=== PATIENT | male | born 1950 | race Caucasian/White ===

== ENCOUNTER → 2016-12-09 | Outpatient (CLI) | payer OTHER ==
--- NOTE | 2016-12-09 09:08 | REP ---
Clinical: Shortness of breath . Comparison: 09/26/2012 . Technique: PA and lateral. Findings: The mediastinum and cardiac silhouette are normal. The lung cloud are clear and without acute consolidation, effusion, or pneumothorax. The skeletal structures are intact and normal. Impression: 1. No acute cardiopulmonary process. Signed by Cesar Dowd MD 12/09/2016 08:58 A
== END ==
LOC: M SMT 08:15
PROVIDERS: ATTEND Internal Medicine Cardiovascular Disease
DX: R06.02 Shortness of breath (principal)

== ENCOUNTER 2017-04-29 14:59 | Emergency (ER) | payer OTHER ==
[~2017-04-29] VITALS: Ht 167.6 cm; Wt 98.6 kg
[2017-04-29] MEDS ORDERED: ASPI81TA21 PO (15:11)
[2017-04-29] MEDS ORDERED: SPIR25TA2 (15:11)
[2017-04-29] MEDS ORDERED: CLOP75TA2 (15:11)
[2017-04-29] MEDS ORDERED: OMEP40CA2 (15:11)
[2017-04-29] MEDS ORDERED: MITI1CAP PO (15:11)
[2017-04-29] MEDS ORDERED: ATOR40TA75 (15:11)
[2017-04-29] MEDS ORDERED: CHLO125TA (15:11)
[2017-04-29] MEDS ORDERED: LISI-538 PO (15:11)
[2017-04-29] MEDS ORDERED: NS 1,000 ML IV ONE (15:30)
[2017-04-29] MEDS ORDERED: GASTROGRAFIN SOLUTION 30ML (Q9963) PO ONE ×2 (15:30→16:00)
[2017-04-29 15:55] LABS: BASO % 0.3 % (0.0-1.0); EOS % 0.4 % (0.0-3.0); IMMATURE GRANULOCYTE % 0.2 % (0-0); LYMPH # 2.1 10^3/uL (1.5-4.5); MEAN CORPUSCULAR HEMOGLOBIN 32.5 pg (27.0-33.0); MEAN CORPUSCULAR HGB CONC 34.7 g/dl (32.0-36.5); MEAN CORPUSCULAR VOLUME 93.5 fl (80.0-96.0); MONO # 0.6 10^3/uL (0.0-0.8); MONO % 6.2 % (0.0-5.0); NEUTROPHILS % 71.9 % (36.0-66.0); PLATELET COUNT, AUTOMATED 172 10^3/uL (150-450); RED CELL DISTRIBUTION WIDTH 13.2 % (11.5-14.5); WHITE BLOOD COUNT 9.8 10^3/uL (4.0-10.0)
[2017-04-29 16:08] LABS: ALBUMIN 4.1 GM/DL (3.2-5.2); ALBUMIN/GLOBULIN RATIO 1.24 (1.00-1.93); BILIRUBIN,DIRECT 0.3 MG/DL (0.0-0.2); CALCIUM LEVEL 9.3 MG/DL (8.8-10.2); CREATININE FOR GFR 1.54 MG/DL (0.70-1.30); GLOMERULAR FILTRATION RATE 48.7 (>49); POTASSIUM SERUM 4.2 MEQ/L (3.5-5.1); TOTAL PROTEIN 7.4 GM/DL (6.4-8.2)
--- NOTE | 2017-04-29 16:51 | REP ---
Clinical: Left-sided abdominal pain. Findings: Mild acute left-sided obstructive uropathy with perinephric and periureteral stranding, and hydroureteronephrosis secondary to a 2 mm calculus in the distal left ureter (image 136). Remainder of the urinary tract system is relatively normal by noncontrast evaluation. Liver, spleen, pancreas, gallbladder, and bilateral adrenal glands are normal. The enteric system is without obstruction or acute inflammatory process incidental note is made of 5 mm appendicolith without appendicitis. Pelvis demonstrates normal bladder prostate gland is enlarged and measures approximately 5.3 cm transverse diameter. No pelvic ascites no adenopathy. No free air. Infrarenal abdominal aortic aneurysm measures 4.4 cm diameter. Musculoskeletal structures demonstrate degenerative changes. Lung bases are clear. Impression: 1. Mild acute left-sided obstructive uropathy with 2 mm calculus in the distal left ureter. 2. Infrarenal abdominal aortic aneurysm measures 4.4 cm diameter and 5.5 cm craniocaudal length. Signed by Cesar Dowd MD 04/29/2017 04:43 P
[2017-04-29] MEDS ORDERED: FLOM5CAP PO (17:48)
[2017-04-29 17:56] VITALS: BP 147/87
== END 2017-04-29 18:04 | disposition home or self-care (01) ==
LOC: M ED 14:59
DX: N20.1 Calculus of ureter (principal)
CPT/HCPCS: 74176; 80048; 80076; 81001; 83690; 85025; 99284; Q9963

== ENCOUNTER → 2017-05-10 | Outpatient (REF) | payer OTHER ==
[~2017-05-10] MED LIST: ASPI81TA21 PO; ATOR40TA75; CHLO125TA; CLOP75TA2; FLOM5CAP PO; LISI-538 PO; MITI1CAP PO; OMEP40CA2; SPIR25TA2
== END ==
LOC: M SMT 16:57
PROVIDERS: ATTEND Nurse Practitioner Women's Health
DX: N20.1 Calculus of ureter (principal)

== ENCOUNTER → 2017-11-30 | Outpatient (CLI) | payer MEDICARE | LOC: M RAD 07:56 | DX: I71.4 Abdominal aortic aneurysm, without rupture (principal) | CPT/HCPCS: 76775 ==

== ENCOUNTER → 2018-07-12 | Outpatient (CLI) | payer MEDICARE ==
[~2018-07-12] MED LIST changes: +FLOM0.4C39 PO; -FLOM5CAP PO; +SPIR-10; -SPIR25TA2
--- NOTE | 2018-07-12 09:57 | REP ---
Abdominal aortic sonography: History: Abdominal aortic aneurysm without rupture. Comparison sonography November 30, 2017. Comparison is also made with CT study from April 29, 2017. Findings: The proximal aorta and the aorta at the level of the main renal arteries could not be seen due to bowel gas. At mid aortic level, the abdominal aorta measures 2.5 x 2.5 cm in AP by transverse dimension. There is a infrarenal abdominal aortic aneurysm measuring 4.4 cm AP by 5.1 cm transverse by 11.5 cm in length. The right and left common iliac arteries are not aneurysmal measuring 1.4 and 1.3 cm respectively in AP dimension. Impression: Somewhat limited study. 4.4 cm infrarenal abdominal aortic aneurysm seen. No change from comparison studies. Electronically Signed by Forest English MD 07/12/2018 10:05 A
== END ==
LOC: M RAD 07:22
PROVIDERS: ATTEND Surgery Vascular Surgery
DX: I71.4 Abdominal aortic aneurysm, without rupture (principal)

== ENCOUNTER → 2019-03-24 | Outpatient (CLI) | payer MEDICARE ==
[~2019-03-24] MED LIST changes: -OMEP40CA2; +OMEP40CA97
--- NOTE | 2019-03-24 09:38 | REP ---
ABDOMINAL AORTIC SONOGRAPHY: HISTORY: Abdominal aortic aneurysm without rupture. Comparison sonography July 12, 2018. FINDINGS: Exam quality is substantially inhibited by bowel gas in the upper abdomen and patient body habitus. The aorta could not be seen at the level of the diaphragmatic hiatus or at the level of the renal artery origins. The previously noted aneurysm dimensions today are 5.1 x 5.3 cm, anterior to posterior by right to left respectively. The distal aorta measures 3.5 x 3.1 cm. The common iliac artery dimensions are 1.4 cm in AP dimension bilaterally. Previous AP dimension of the infrarenal abdominal aortic aneurysm was 4.4 cm. IMPRESSION: Poor image quality study today. 5.1 cm infrarenal abdominal aortic aneurysm. This is larger than previous measured dimension. Electronically Signed by Forest English MD 03/24/2019 07:33 P
== END ==
LOC: M RAD 06:41
PROVIDERS: ATTEND Physician Assistant
DX: I71.4 Abdominal aortic aneurysm, without rupture (principal)

== ENCOUNTER → 2019-04-20 | Outpatient (CLI) | payer MEDICARE ==
[2019-04-20 16:09] LABS: BLOOD UREA NITROGEN 15 MG/DL (7-18); CALCIUM LEVEL 9.4 MG/DL (8.8-10.2); CARBON DIOXIDE LEVEL 30 MEQ/L (21-32); CHLORIDE LEVEL 99 MEQ/L (98-107); CREATININE FOR GFR 1.06 MG/DL (0.70-1.30); GLOMERULAR FILTRATION RATE > 60.0 (>49); GLUCOSE, FASTING 92 MG/DL (70-100); POTASSIUM SERUM 4.5 MEQ/L (3.5-5.1); SODIUM LEVEL 136 MEQ/L (136-145)
== END ==
LOC: M LAB 14:12
PROVIDERS: ATTEND Physician Assistant
DX: I71.4 Abdominal aortic aneurysm, without rupture (principal)

== ENCOUNTER → 2019-05-02 | Outpatient (CLI) | payer MEDICARE ==
[~2019-05-02] MED LIST changes: +ISOVUE-370 76% 100ML VIAL (Q9967) As Ordered ONE
--- NOTE | 2019-05-02 09:20 | REP ---
Clinical: History of abdominal aortic aneurysm. Technique: Axial contrast enhanced images from the lung bases to the pubic symphysis using angiographic technique including coronal and sagittal MIP re-formations and volume rendered aortic angiogram. Comparison: 04/29/2017. Findings: There is a partially thrombosed infrarenal abdominal aortic aneurysm which measures 4.5 x 4.2 cm diameter and approximately 8.6 cm in craniocaudal length originating 3 cm below the renal arteries and extending to the level of the aortic bifurcation. Patent lumen through the aneurysm measures 3.6 x 2.9 cm maximal diameter. No evidence for rupture or periaortic inflammatory change / fluid. Moderate diffuse atherosclerotic changes are appreciated throughout the arterial vascular structures. Celiac axis, superior mesenteric artery, bilateral renal arteries and iliac arteries demonstrate normal intraluminal enhancement without obvious focal stenosis or occlusion. Liver, spleen, pancreas, gallbladder, bilateral adrenal glands and kidneys are relatively normal. The enteric system is without obstruction or acute inflammatory process. Pelvis demonstrates normal bladder with mildly enlarged prostate gland measuring 5.1 cm maximal transverse diameter. No ascites. No free air. No adenopathy. Musculoskeletal structures demonstrate age-related changes without focal abnormality. Lung bases are clear. Impression: 1. Infrarenal abdominal aortic aneurysm as detailed above. 2. Moderate generalized atherosclerotic disease. 3. Prostatomegaly. Electronically Signed by Cesar Dowd MD 05/02/2019 09:12 A
== END ==
LOC: M RAD 07:32
PROVIDERS: ATTEND Physician Assistant
DX: N40.0 Benign prostatic hyperplasia without lower urinary tract symptoms (principal); I25.10 Atherosclerotic heart disease of native coronary artery without angina pectoris; I71.4 Abdominal aortic aneurysm, without rupture
CPT/HCPCS: 74174; Q9967

== ENCOUNTER → 2019-11-27 | Outpatient (CLI) | payer MEDICARE ==
[~2019-11-27] MED LIST changes: -ISOVUE-370 76% 100ML VIAL (Q9967) As Ordered ONE
[2019-11-27 11:06] LABS: BLOOD UREA NITROGEN 19 MG/DL (7-18); CALCIUM LEVEL 8.7 MG/DL (8.8-10.2); CARBON DIOXIDE LEVEL 31 MEQ/L (21-32); CHLORIDE LEVEL 100 MEQ/L (98-107); CREATININE FOR GFR 0.99 MG/DL (0.70-1.30); GLOMERULAR FILTRATION RATE > 60.0 (>49); GLUCOSE, FASTING 96 MG/DL (70-100); SODIUM LEVEL 136 MEQ/L (136-145)
== END ==
LOC: M LAB 09:28
PROVIDERS: ATTEND Surgery Vascular Surgery
DX: Z01.818 Encounter for other preprocedural examination (principal); I71.4 Abdominal aortic aneurysm, without rupture

== ENCOUNTER → 2019-11-30 | Outpatient (CLI) | payer MEDICARE ==
[~2019-11-30] MED LIST changes: +ISOVUE-370 76% 100ML VIAL As Ordered ONE
--- NOTE | 2019-11-30 10:06 | REP ---
CT CHEST WITH IV CONTRAST: HISTORY: Abdominal aortic aneurysm. No comparison chest CT study. CT CONTRAST DOSE: 100 mL of intravenous Isovue [address] FINDINGS: There is good opacification of the thoracic aorta and the pulmonary arterial tree. There is no evidence of thoracic aortic aneurysm or dissection. Mild vascular calcification is seen. Great vessel origins are unremarkable. There is no evidence of pulmonary embolus. There is left coronary artery vascular calcification. No mediastinal mass or adenopathy is observed. No pleural or pericardial effusion is seen. The lung cloud are clear. No pulmonary mass or significant pulmonary nodule is seen. No infiltrate is noted. No bony destructive lesion is seen. There are degenerative disc changes in the thoracic spine. Thyroid lobes are normal and symmetric. No supraclavicular or axillary mass or adenopathy is seen. IMPRESSION: Vascular calcification including left coronary artery vascular calcification. Otherwise no active disease. No thoracic aortic aneurysm or dissection. Electronically Signed by Forest English MD 11/30/2019 10:35 A
--- NOTE | 2019-11-30 10:08 | REP ---
CT SCAN OF THE ABDOMEN PELVIS WITH IV BUT WITHOUT ORAL CONTRAST: HISTORY: Abdominal aortic aneurysm without rupture. CT CONTRAST DOSE: 100 mL of intravenous Isovue 370 is administered. COMPARISON STUDY: May 02, 2019 and April 29, 2017. The most recent abdominal CT study describes an infrarenal abdominal aortic aneurysm measuring 4.5 x 4.2 cm in diameter and 8.6 cm in craniocaudal span. CT FINDINGS: Digital preliminary photoengraver apprentice radiograph shows an unremarkable bowel gas pattern. There is moderate diffuse fatty infiltration of the liver. No abnormalities noted in the pancreas and gallbladder. No focal hepatic or splenic lesion is seen. The adrenals are normal bilaterally. The kidneys enhance symmetrically and are morphologically intact. There is mild vascular calcification at the renal artery origins as before. The distal thoracic and proximal abdominal aortic dimension is normal. At the diaphragmatic hiatus the AP dimension of the aorta is 2.3 cm. An infrarenal abdominal aortic aneurysm is again noted. Its current dimensions are 4.9 cm anteroposterior x 4.5 cm right to left, on previous scan by my dimensions, the aneurysm would measured 4.8 x 4.4 cm. It is felt to be essentially unchanged. On the 2017 scan AP dimension is 4.7 cm. There is an intramural thrombus. The aneurysm has good aortic bifurcation. There is vascular calcification in the common iliac arteries but these are not dilated. No aneurysm is seen in the external or internal iliacs or in the visceral arteries. Normal appendix is seen. Small and large intestinal bowel loops are unremarkable. Seminal vesicles, prostate and urinary bladder are unremarkable. IMPRESSION: Infrarenal abdominal aortic aneurysm measuring 4.9 x 4.5 cm essentially unchanged. Electronically Signed by Forest English MD 11/30/2019 10:35 A
== END ==
LOC: M RAD 08:14
PROVIDERS: ATTEND Physician Assistant
DX: I71.4 Abdominal aortic aneurysm, without rupture (principal)
CPT/HCPCS: 71260; 74177; Q9967

== ENCOUNTER → 2020-10-14 | Outpatient (CLI) | payer MEDICARE ==
[~2020-10-14] MED LIST changes: -ISOVUE-370 76% 100ML VIAL As Ordered ONE; -LISI-538 PO; +LISI20TA33 PO
--- NOTE | 2020-10-14 09:38 | REP ---
INDICATION: AAA. COMPARISON: 03/24/2019. TECHNIQUE: Real-time sonographic evaluation of the abdominal aorta performed. FINDINGS: There is no significant change when compared to the prior study. Overlying bowel gas obscures the proximal abdominal aorta. Maximum AP diameter of abdominal aorta: Proximal (at diaphragm): Obscured by bowel gas. At renal artery level: Obscured by bowel gas. Mid abdominal aorta: 2.9 cm. Distal abdominal aorta (prebifurcation): 4.8 cm. Maximum AP diameter common iliac arteries: Right: 14 mm. Left: 14mm. The distal abdominal aortic aneurysm extends for a length of approximately 6-7 cm. Current measurements 4.8 x 5.8 cm, previously measured 5.1 x 5.3 cm. IMPRESSION: Stable aneurysm distal abdominal aorta. <Electronically signed by Pb Malone > 10/14/20 [id number]
== END ==
LOC: M RAD 06:43
PROVIDERS: ATTEND Physician Assistant
DX: I71.4 Abdominal aortic aneurysm, without rupture (principal)

== ENCOUNTER → 2020-11-11 | Outpatient (REF) | payer MEDICARE ==
[2020-11-11 10:11] LABS: HEMATOCRIT 45.3 % (42.0-52.0); HEMOGLOBIN 15.1 g/dl (13.5-17.5); MEAN CORPUSCULAR HEMOGLOBIN 31.1 pg (27.0-33.0); MEAN CORPUSCULAR HGB CONC 33.3 g/dl (32.0-36.5); MEAN CORPUSCULAR VOLUME 93.4 fl (80.0-96.0); PLATELET COUNT, AUTOMATED 150 10^3/uL (150-450); RED BLOOD COUNT 4.85 10^6/uL (4.30-6.10); WHITE BLOOD COUNT 5.3 10^3/uL (4.0-10.0)
[2020-11-11 10:43] LABS: ALBUMIN 3.9 GM/DL (3.2-5.2); ALT/SGPT 40 U/L (12-78); BILIRUBIN,TOTAL 0.6 MG/DL (0.2-1.0); BLOOD UREA NITROGEN 17 MG/DL (7-18); CALCIUM LEVEL 8.8 MG/DL (8.8-10.2); CARBON DIOXIDE LEVEL 25 MEQ/L (21-32); CHLORIDE LEVEL 101 MEQ/L (98-107); CHOLESTEROL LEVEL 144 MG/DL (<200); CHOLESTEROL RISK RATIO 3.348 (<5); CREATININE FOR GFR 0.82 MG/DL (0.70-1.30); GLOMERULAR FILTRATION RATE > 60.0 (>49); GLUCOSE, FASTING 114 MG/DL (70-100); HDL CHOLESTEROL 43 MG/DL (>40); LDL CHOLESTEROL 68 MG/DL (<100); NON-HDL-C 101 MG/DL; POTASSIUM SERUM 4.7 MEQ/L (3.5-5.1); SODIUM LEVEL 133 MEQ/L (136-145); TOTAL PROTEIN 7.5 GM/DL (6.4-8.2); TRIGLYCERIDES LEVEL 166 MG/DL (<150)
[2020-11-11 11:37] LABS: HEMOGLOBIN A1c 6.2 %
== END ==
LOC: M PLALAB 07:51
PROVIDERS: ATTEND Family Medicine
DX: I71.4 Abdominal aortic aneurysm, without rupture (principal); E78.2 Mixed hyperlipidemia; R73.03 Prediabetes; Z12.5 Encounter for screening for malignant neoplasm of prostate
CPT/HCPCS: 36415; 80053; 80061; 83036; 85027; G0103

== ENCOUNTER → 2020-11-11 | Outpatient (CLI) | payer MEDICARE ==
[2020-11-11 10:18] LABS: BLOOD UREA NITROGEN 17 MG/DL (7-18); CALCIUM LEVEL 8.8 MG/DL (8.8-10.2); CARBON DIOXIDE LEVEL 26 MEQ/L (21-32); CHLORIDE LEVEL 101 MEQ/L (98-107); CHOLESTEROL LEVEL 150 MG/DL (<200); CHOLESTEROL RISK RATIO 3.409 (<5); CREATININE FOR GFR 0.87 MG/DL (0.70-1.30); GLOMERULAR FILTRATION RATE > 60.0 (>49); GLUCOSE, FASTING 113 MG/DL (70-100); HDL CHOLESTEROL 44 MG/DL (>40); LDL CHOLESTEROL 73 MG/DL (<100); NON-HDL-C 106 MG/DL; POTASSIUM SERUM 4.3 MEQ/L (3.5-5.1); SODIUM LEVEL 134 MEQ/L (136-145); TRIGLYCERIDES LEVEL 165 MG/DL (<150)
== END ==
LOC: M PLALAB 07:51
PROVIDERS: ATTEND Physician Assistant
DX: I25.10 Atherosclerotic heart disease of native coronary artery without angina pectoris (principal); I11.9 Hypertensive heart disease without heart failure

== ENCOUNTER → 2020-12-04 | Outpatient (CLI) | payer MEDICARE ==
[~2020-12-04] MED LIST changes: +OMEP40CA4; -OMEP40CA97
--- NOTE | 2020-12-04 13:27 | REP ---
INDICATION: PAIN IN RIGHT HIP COMPARISON: None. TECHNIQUE: AP and frog-lateral views of the right hip FINDINGS: Moderate osteoarthritic degenerative changes are appreciated including subchondral sclerosis and very subtle cystic changes to the acetabulum with near complete joint space obliteration. No acute or healed fracture or dislocation. Surrounding soft tissues are unremarkable. IMPRESSION: Moderate osteoarthritic degenerative changes. <Electronically signed by Cesar Dowd > 12/04/20 [id number]
== END ==
LOC: M ADAMS 12:46
PROVIDERS: ATTEND Family Medicine
DX: M16.11 Unilateral primary osteoarthritis, right hip (principal)

== ENCOUNTER → 2020-12-11 | Outpatient (CLI) | payer MEDICARE ==
--- NOTE | 2020-12-11 15:34 | REP ---
INDICATION: PAIN IN RIGHT HIP. COMPARISON: None. TECHNIQUE: Single weightbearing AP view of the pelvis FINDINGS: Visualized portions of the iliac bones appear relatively normal and without fracture or dislocation. Moderate degenerative changes to the bilateral hips includes periarticular sclerosis and marginal spurring along the acetabular roofs with associated moderate joint space narrowing (right greater than left). No acute fracture or dislocation. IMPRESSION: Moderate degenerative changes to the bilateral hips (right greater than left). <Electronically signed by Cesar Dowd > 12/11/20 [id number]
== END ==
LOC: M SOG 15:09
PROVIDERS: ATTEND Orthopaedic Surgery Adult Reconstructive Orthopaedic Surgery
DX: M25.551 Pain in right hip (principal); M16.0 Bilateral primary osteoarthritis of hip

== ENCOUNTER → 2020-12-31 | Outpatient (CLI) | payer MEDICARE ==
[~2020-12-31] MED LIST changes: +ISOVUE-370 76% 100ML VIAL As Ordered ONE
--- NOTE | 2020-12-31 10:27 | REP ---
INDICATION: ABDOMINAL AORTIC ANEURYSM, WITHOUT RUPTURE COMPARISON: Aortic ultrasound 10/14/2020, CT abdomen pelvis 11/30/2019, CT angio 05/02/2019. TECHNIQUE: CT angiogram of the abdomen and pelvis was performed with intravenous administration of 100 cc of Isovue 370, without oral contrast. 3D MIP reconstruction images performed. FINDINGS: Abdominal aorta: There is infrarenal abdominal aortic aneurysm beginning well below takeoff the renal arteries. As a length of 8.7 mm. Peripheral atherosclerotic plaque evident within. The maximum measurement AP 4.6 cm x 4.5 cm transverse. There is no dissection. No evidence of a leak paraspinal region. No aortic dissection. There is atheromatous calcification evident along the aorta, origins of the renal arteries, SMA and celiac axis. No extension into the bifurcation or iliac arteries. Scattered atherosclerotic calcifications there. Lung bases: Unremarkable. Liver: Is without the enlargement, focal hepatic mass or biliary dilatation. Gallbladder: Unremarkable. Spleen: Normal. Adrenals: Normal. Pancreas: Normal. Kidneys: There is a zone of the poor enhancement in the lower pole on the right. There is no mass or enlargement. This could be focal ischemia or infection. No Cynthia nephric fluid or edema. There is an accessory renal artery to the lower pole arising from the aorta well below the main renal artery. This is opacified. Small and large bowel: Unremarkable. Free fluid: None. Adenopathy: None. Appendix: Not inflamed. Pelvis: No mass. No ascites or adenopathy. Osseous structures: Bilateral L5 spondylolysis with grade 1/2 spondylolisthesis of L5 on S1. Disc space is narrowed the other disc space heights and all vertebral body heights intact. Sacrum, SI joints, pelvis and hips with some degenerative changes but no acute finding.. IMPRESSION: 1. Infrarenal abdominal aortic aneurysm length of 8.7 cm by my measurement today and AP 4.6 cm x 4.5 cm transverse at maximum diameters. No evidence of dissection. There is no paraspinal leak. Atheromatous change and calcifications noted. Findings appear stable. No dissection 2. Lower pole right kidney with the zone of poor opacification as a change from previous study this may reflect the focal area of infection versus some ischemia. However the accessory renal artery arising from the aorta inferior to the main renal artery shows contrast to the renal hilus. Left kidney unremarkable. No other significant intra-abdominal or pelvic organ finding. 3. Bilateral L5 spondylolysis with grade 1/2 spondylolisthesis of L5 on S1 and some degenerative disc and facet arthritis lumbar spine. This is stable. <Electronically signed by Arun Atwood > 12/31/20 [id number]
== END ==
LOC: M RAD 09:18
PROVIDERS: ATTEND Physician Assistant
DX: I71.4 Abdominal aortic aneurysm, without rupture (principal); M43.16 Spondylolisthesis, lumbar region; M51.36 Other intervertebral disc degeneration, lumbar region
CPT/HCPCS: 74174; Q9967

== ENCOUNTER → 2021-05-07 | Outpatient (CLI) | payer MEDICARE ==
[~2021-05-07] MED LIST changes: -ISOVUE-370 76% 100ML VIAL As Ordered ONE
== END ==
LOC: M LABSMTC 11:03
PROVIDERS: ATTEND Surgery Vascular Surgery
DX: Z01.812 Encounter for preprocedural laboratory examination (principal); Z20.822 Contact with and (suspected) exposure to COVID-19

== ENCOUNTER → 2021-10-17 | Outpatient (CLI) | payer MEDICARE | LOC: M SOG 07:58 | PROVIDERS: ATTEND Orthopaedic Surgery Adult Reconstructive Orthopaedic Surgery | DX: M16.11 Unilateral primary osteoarthritis, right hip (principal); M25.551 Pain in right hip ==

== ENCOUNTER → 2021-11-06 | Outpatient (CLI) | payer MEDICARE ==
[~2021-11-06] MED LIST changes: +BUPIVACAINE HCL 0.5% 30ML VIAL As Ordered ONE; +ISOVUE-300 61% 50ML VIAL As Ordered ONE; +LIDOCAINE 1% MDV 20ML VIAL As Ordered ONE; +methylPREDNISolone 80MG/ML SUSP 1ML VIAL (J1040) As Ordered ONE
== END ==
LOC: M RADPRO 13:04
PROVIDERS: ATTEND Orthopaedic Surgery Adult Reconstructive Orthopaedic Surgery
DX: M16.0 Bilateral primary osteoarthritis of hip (principal)
CPT/HCPCS: 20610; 77002; J1040; Q9967

== ENCOUNTER → 2021-11-24 | Outpatient (CLI) | payer MEDICARE ==
[~2021-11-24] MED LIST changes: -BUPIVACAINE HCL 0.5% 30ML VIAL As Ordered ONE; -ISOVUE-300 61% 50ML VIAL As Ordered ONE; -LIDOCAINE 1% MDV 20ML VIAL As Ordered ONE; -methylPREDNISolone 80MG/ML SUSP 1ML VIAL (J1040) As Ordered ONE
[2021-11-24 10:37] LABS: HEMATOCRIT 45.8 % (42.0-52.0); HEMOGLOBIN 15.2 g/dl (13.5-17.5); MEAN CORPUSCULAR HEMOGLOBIN 31.4 pg (27.0-33.0); MEAN CORPUSCULAR HGB CONC 33.2 g/dl (32.0-36.5); MEAN CORPUSCULAR VOLUME 94.6 fl (80.0-96.0); PLATELET COUNT, AUTOMATED 144 10^3/uL (150-450); RED BLOOD COUNT 4.84 10^6/uL (4.30-6.10); WHITE BLOOD COUNT 6.1 10^3/uL (4.0-10.0)
[2021-11-24 11:16] LABS: HEMOGLOBIN A1c 6.4 %
[2021-11-24 11:20] LABS: ALBUMIN 3.8 GM/DL (3.2-5.2); ALT/SGPT 34 U/L (12-78); BILIRUBIN,TOTAL 0.7 MG/DL (0.2-1.0); BLOOD UREA NITROGEN 19 MG/DL (7-18); CALCIUM LEVEL 8.9 MG/DL (8.8-10.2); CARBON DIOXIDE LEVEL 30 MEQ/L (21-32); CHLORIDE LEVEL 99 MEQ/L (98-107); CHOLESTEROL LEVEL 145 MG/DL (<200); CHOLESTEROL RISK RATIO 3.372 (<5); CREATININE FOR GFR 1.04 MG/DL (0.70-1.30); GLOMERULAR FILTRATION RATE > 60.0 (>49); GLUCOSE, FASTING 122 MG/DL (70-100); HDL CHOLESTEROL 43 MG/DL (>40); LDL CHOLESTEROL 59 MG/DL (<100); NON-HDL-C 102 MG/DL; POTASSIUM SERUM 4.8 MEQ/L (3.5-5.1); SODIUM LEVEL 136 MEQ/L (136-145); TOTAL PROTEIN 7.4 GM/DL (6.4-8.2); TRIGLYCERIDES LEVEL 217 MG/DL (<150)
== END ==
LOC: M PLALAB 08:21
PROVIDERS: ATTEND Family Medicine
DX: I11.9 Hypertensive heart disease without heart failure (principal); I25.10 Atherosclerotic heart disease of native coronary artery without angina pectoris; E78.2 Mixed hyperlipidemia; R73.03 Prediabetes; Z12.5 Encounter for screening for malignant neoplasm of prostate
CPT/HCPCS: 36415; 80053; 80061; 83036; 85027; G0103

== ENCOUNTER → 2022-02-05 | Outpatient (CLI) | payer MEDICARE, OTHER ==
[~2022-02-05] MED LIST changes: +BUPIVACAINE HCL 0.5% 30ML VIAL As Ordered ONE; +ISOVUE-300 61% 50ML VIAL As Ordered ONE; +LIDOCAINE 1% MDV 20ML VIAL As Ordered ONE; +methylPREDNISolone 80MG/ML SUSP 1ML VIAL (J1040) As Ordered ONE
== END ==
LOC: M RAD 12:51
PROVIDERS: ATTEND Orthopaedic Surgery Adult Reconstructive Orthopaedic Surgery
DX: M16.0 Bilateral primary osteoarthritis of hip (principal)
CPT/HCPCS: 76000; J1040; Q9967

== ENCOUNTER → 2022-04-06 | Outpatient (RCR) | payer MEDICARE, OTHER ==
[~2022-04-06] MED LIST changes: -BUPIVACAINE HCL 0.5% 30ML VIAL As Ordered ONE; -ISOVUE-300 61% 50ML VIAL As Ordered ONE; -LIDOCAINE 1% MDV 20ML VIAL As Ordered ONE; -methylPREDNISolone 80MG/ML SUSP 1ML VIAL (J1040) As Ordered ONE
== END ==
LOC: M PT 10:39
PROVIDERS: ATTEND Orthopaedic Surgery Adult Reconstructive Orthopaedic Surgery
DX: M25.851 Other specified joint disorders, right hip (principal)

== ENCOUNTER → 2022-04-28 | Outpatient (REF) | payer MEDICARE ==
[~2022-04-28] MED LIST changes: +ASPI81TA26 PO; +ATOR1TAB21 PO; +CHLO125TA PO; +CLOP75TA2 PO; +COLC0.6T47 PO; +COQ-100C5 PO; +IBUP200C27 PO; +IBUP200C28 PO; +LISI10TA22 PO; +NITR4TASL SL; +OMEG10002 PO; +OMEP40CA4 PO; +SPIR-10 PO
[2022-04-28 13:35] LABS: BASO % 0.6 % (0.0-1.0); EOS # 0.2 10^3/uL (0.0-0.5); EOS % 2.5 % (0.0-3.0); HEMATOCRIT 46.9 % (42.0-52.0); HEMOGLOBIN 15.4 g/dl (13.5-17.5); LYMPH # 1.9 10^3/uL (1.5-5.0); LYMPH % 28.7 % (24.0-44.0); MEAN CORPUSCULAR HEMOGLOBIN 31.2 pg (27.0-33.0); MEAN CORPUSCULAR HGB CONC 32.8 g/dl (32.0-36.5); MEAN CORPUSCULAR VOLUME 95.1 fl (80.0-96.0); MONO # 0.8 10^3/uL (0.0-0.8); MONO % 12.6 % (2.0-8.0); NEUTROPHILS # 3.6 10^3/uL (1.5-8.5); NEUTROPHILS % 55.1 % (36.0-66.0); PLATELET COUNT, AUTOMATED 168 10^3/uL (150-450); RED BLOOD COUNT 4.93 10^6/uL (4.30-6.10); WHITE BLOOD COUNT 6.4 10^3/uL (4.0-10.0)
[2022-04-28 14:27] LABS: ALT/SGPT 31 U/L (7.0-40); BILIRUBIN,TOTAL 0.5 MG/DL (0.3-1.2); BLOOD UREA NITROGEN 17 MG/DL (9-23); CALCIUM LEVEL 9.2 MG/DL (8.3-10.6); CARBON DIOXIDE LEVEL 29 MMOL/L (20-31); CHLORIDE LEVEL 98 MMOL/L (98-107); CREATININE FOR GFR 0.87 MG/DL (0.70-1.30); GLOMERULAR FILTRATION RATE > 60.0 (>49); GLUCOSE, FASTING 110 MG/DL (74-106); POTASSIUM SERUM 4.6 MMOL/L (3.5-5.1); SODIUM LEVEL 136 MMOL/L (136-145); TOTAL PROTEIN 7.4 G/DL (5.7-8.2)
== END ==
LOC: M SFHCADAM 10:56
PROVIDERS: ATTEND Family Medicine
DX: Z01.818 Encounter for other preprocedural examination (principal)

== ENCOUNTER → 2022-04-29 | Outpatient (CLI) | payer MEDICARE, OTHER | LOC: M RAD 08:40 | PROVIDERS: ATTEND Orthopaedic Surgery Adult Reconstructive Orthopaedic Surgery | DX: M16.0 Bilateral primary osteoarthritis of hip (principal) ==

== ENCOUNTER → 2022-05-07 | Outpatient (CLI) | payer MEDICARE, OTHER | LOC: M LABSMTC 09:08 | PROVIDERS: ATTEND Anesthesiology | DX: Z01.812 Encounter for preprocedural laboratory examination (principal); Z11.52 Encounter for screening for COVID-19 ==

== ENCOUNTER 2022-05-12 08:57 | Inpatient (IN) | payer OTHER ==
[~2022-05-12] VITALS: Ht 167.6 cm; Wt 95.3 kg
[~2022-05-12 08:57] MED LIST changes: +ACETAMINOPHEN 500 MG TAB PO ONE; +LIDOCAINE 2% 100MG/5ML SDV (FOR ANES.) As Ordered ONE; +MIDAZOLAM INJ 2MG/2ML VIAL (J2250 PER 1MG) As Ordered ONE; +NAPROXEN 250 MG TAB PO ONE; +NS 1,000 ML IV ONE; +PREGABALIN 25 MG CAP (LYRICA) PO ONE; +ROCURONIUM BROMIDE 50 MG/5 ML VIAL As Ordered ONE; +ROPIVA 125MG/EPINEPH 0.25MG/CLONID 40MCG/KETOR 15MG IN NS 50ML SYRINGE PA ONE; +ceFAZolin SOD 2 GM in IV 1 EA IV ONE; +fentaNYL 250 MCG/5 ML INJECTION As Ordered ONE; +propofoL 200 MG/20 ML VIAL As Ordered ONE
[2022-05-12] MEDS ORDERED: TRANEXAMIC ACID 100 MG/ML 10ML VIAL As Ordered ONE ×2 (10:31→11:51)
[2022-05-12] MEDS ORDERED: VANCOMYCIN 1000MG/20ML VIAL As Ordered ONE (10:31)
[2022-05-12] MEDS ORDERED: METOCLOPRAMIDE INJ 10MG/2ML VIAL As Ordered ONE (12:22)
[2022-05-12] MEDS ORDERED: SUGAMMADEX SODIUM 500 MG/5 ML VIAL (BRIDION) As Ordered ONE (12:22)
[2022-05-12] MEDS ORDERED: ONDANSETRON 4MG 2ML VIAL As Ordered ONE (12:22)
[2022-05-12] MEDS ORDERED: MORPHINE 2 MG/ML 1ML VIAL IV PRN (13:40)
[2022-05-12] MEDS ORDERED: fentaNYL 100 MCG/2 ML INJECTION IV PRN (13:40)
[2022-05-12] MEDS ORDERED: LR 1,000 ML IV SCH ×2 (13:40→14:25)
[2022-05-12] MEDS ORDERED: METOCLOPRAMIDE INJ 10MG/2ML VIAL IV PRN (13:40)
[2022-05-12] MEDS ORDERED: ONDANSETRON 4MG 2ML VIAL IV PRN ×2 (13:40→14:25)
[2022-05-12] MEDS ORDERED: oxyCODONE 5MG TAB PO PRN (13:40)
[2022-05-12] MEDS ORDERED: SENNA 8.6 MG TAB (SENOKOT) PO PRN (14:25)
[2022-05-12] MEDS ORDERED: traMADol 50 MG TAB PO PRN (14:25)
[2022-05-12 17:30] VITALS: BP 171/92
[2022-05-12] MEDS ORDERED: HOME MED LIST COMPLETE! XX SCH (18:10)
[2022-05-12] MEDS: ACETAMINOPHEN TAB 650MG DOSE (2X325MG) PO SCH (18:35)
[2022-05-12 19:55] VITALS: BP 138/73
[2022-05-12] MEDS: ceFAZolin SOD 2 GM in IV 1 EA IV SCH (20:02)
[2022-05-12] MEDS ORDERED: NAPROXEN 250 MG TAB PO SCH (21:00)
[2022-05-12] MEDS ORDERED: DOCUSATE SODIUM 100MG CAPSULE PO SCH (21:00)
[2022-05-13] MEDS: ACETAMINOPHEN TAB 650MG DOSE (2X325MG) PO SCH ×2 (01:12→05:10)
[2022-05-13 01:53] VITALS: BP 147/81
[2022-05-13] MEDS: ceFAZolin SOD 2 GM in IV 1 EA IV SCH (05:02)
[2022-05-13 05:04] VITALS: BP 147/83
[2022-05-13 08:23] LABS: HEMATOCRIT 35.7 % (42.0-52.0); HEMOGLOBIN 12.2 g/dl (13.5-17.5); MEAN CORPUSCULAR HEMOGLOBIN 31.6 pg (27.0-33.0); MEAN CORPUSCULAR HGB CONC 34.2 g/dl (32.0-36.5); MEAN CORPUSCULAR VOLUME 92.5 fl (80.0-96.0); PLATELET COUNT, AUTOMATED 157 10^3/uL (150-450); RED BLOOD COUNT 3.86 10^6/uL (4.30-6.10); WHITE BLOOD COUNT 12.8 10^3/uL (4.0-10.0)
[2022-05-13] MEDS ORDERED: ASPIRIN 81MG ENTERIC TABLET PO SCH (09:00)
[2022-05-13] MEDS ORDERED: FERROUS SULFATE 325MG TAB PO SCH (09:00)
[2022-05-13] MEDS ORDERED: ASCORBIC ACID 500 MG TAB PO SCH (09:00)
[2022-05-13] MEDS ORDERED: ASCORBIC ACID 500 MG TAB ONE (09:28)
[2022-05-13] MEDS ORDERED: ACETAMINOPHEN TAB 650MG DOSE (2X325MG) ONE ×3 (09:28→17:30)
[2022-05-13] MEDS ORDERED: OMEPRAZOLE 20MG CAP ONE (09:29)
[2022-05-13] MEDS ORDERED: SPIRONOLACTONE 12.5MG PER 1/2 TABLET ONE (09:29)
[2022-05-13] MEDS ORDERED: FERROUS SULFATE 325MG TAB ONE (09:29)
[2022-05-13] MEDS ORDERED: DOCUSATE SODIUM 100MG CAPSULE ONE ×2 (09:29→19:28)
[2022-05-13] MEDS ORDERED: ASPIRIN 81MG ENTERIC TABLET ONE (09:30)
[2022-05-13] MEDS ORDERED: CLOPIDOGREL 75 MG TAB ONE (09:30)
[2022-05-13] MEDS ORDERED: NAPROXEN 250 MG TAB ONE ×2 (09:30→19:28)
[2022-05-13 09:34] LABS: MAGNESIUM LEVEL 1.6 MG/DL (1.8-2.4)
[2022-05-13] MEDS ORDERED: ATORVASTATIN 20 MG TAB ONE (09:34)
[2022-05-13 09:57] LABS: ALBUMIN 3.4 G/DL (3.2-5.2); ALKALINE PHOSPHATASE 49 U/L (46-116); ALT/SGPT 39 U/L (7.0-40); AST/SGOT 50 U/L (<34); BILIRUBIN,TOTAL 0.5 MG/DL (0.3-1.2); BLOOD UREA NITROGEN 33 MG/DL (9-23); CALCIUM LEVEL 8.5 MG/DL (8.3-10.6); CARBON DIOXIDE LEVEL 24 MMOL/L (20-31); CHLORIDE LEVEL 98 MMOL/L (98-107); CREATININE FOR GFR 1.19 MG/DL (0.70-1.30); GLOMERULAR FILTRATION RATE > 60.0 (>49); GLUCOSE, FASTING 145 MG/DL (74-106); POTASSIUM SERUM 4.3 MMOL/L (3.5-5.1); SODIUM LEVEL 133 MMOL/L (136-145); TOTAL PROTEIN 6.2 G/DL (5.7-8.2)
[2022-05-13] MEDS ORDERED: CHLORTHALIDONE 12.5MG PER 1/2 TABLET ONE (11:07)
[2022-05-13] MEDS ORDERED: MAGNESIUM OXIDE 400MG TAB (MAG-OX) ONE (11:07)
[2022-05-14 06:10] LABS: BASO % 0.5 % (0.0-1.0); EOS # 0.1 10^3/uL (0.0-0.5); EOS % 0.8 % (0.0-3.0); HEMATOCRIT 32.8 % (42.0-52.0); HEMOGLOBIN 11.2 g/dl (13.5-17.5); LYMPH # 1.5 10^3/uL (1.5-5.0); LYMPH % 17.5 % (24.0-44.0); MEAN CORPUSCULAR HEMOGLOBIN 31.8 pg (27.0-33.0); MEAN CORPUSCULAR HGB CONC 34.1 g/dl (32.0-36.5); MEAN CORPUSCULAR VOLUME 93.2 fl (80.0-96.0); MONO # 0.9 10^3/uL (0.0-0.8); MONO % 10.8 % (2.0-8.0); NEUTROPHILS # 5.9 10^3/uL (1.5-8.5); NEUTROPHILS % 69.8 % (36.0-66.0); PLATELET COUNT, AUTOMATED 138 10^3/uL (150-450); RED BLOOD COUNT 3.52 10^6/uL (4.30-6.10); WHITE BLOOD COUNT 8.5 10^3/uL (4.0-10.0)
[2022-05-14] MEDS ORDERED: ACETAMINOPHEN TAB 650MG DOSE (2X325MG) ONE ×2 (06:12→13:28)
[2022-05-14 06:33] LABS: MAGNESIUM LEVEL 1.8 MG/DL (1.8-2.4)
[2022-05-14 06:47] LABS: ALBUMIN 3.2 G/DL (3.2-5.2); ALKALINE PHOSPHATASE 48 U/L (46-116); ALT/SGPT 31 U/L (7.0-40); AST/SGOT 46 U/L (<34); BILIRUBIN,TOTAL 0.8 MG/DL (0.3-1.2); BLOOD UREA NITROGEN 24 MG/DL (9-23); CALCIUM LEVEL 8.1 MG/DL (8.3-10.6); CARBON DIOXIDE LEVEL 30 MMOL/L (20-31); CHLORIDE LEVEL 97 MMOL/L (98-107); CREATININE FOR GFR 0.85 MG/DL (0.70-1.30); GLOMERULAR FILTRATION RATE > 60.0 (>49); GLUCOSE, FASTING 149 MG/DL (74-106); SODIUM LEVEL 133 MMOL/L (136-145); TOTAL PROTEIN 5.9 G/DL (5.7-8.2)
[2022-05-14] MEDS ORDERED: DOCUSATE SODIUM 100MG CAPSULE ONE (09:21)
[2022-05-14] MEDS ORDERED: NAPROXEN 250 MG TAB ONE (09:21)
[2022-05-14] MEDS ORDERED: ASPIRIN 81MG ENTERIC TABLET ONE (09:21)
[2022-05-14] MEDS ORDERED: FERROUS SULFATE 325MG TAB ONE (09:21)
[2022-05-14] MEDS ORDERED: CLOPIDOGREL 75 MG TAB ONE (09:21)
[2022-05-14] MEDS ORDERED: OMEPRAZOLE 20MG CAP ONE (09:21)
[2022-05-14] MEDS ORDERED: ATORVASTATIN 20 MG TAB ONE (09:21)
[2022-05-14] MEDS ORDERED: ASCORBIC ACID 500 MG TAB ONE (09:22)
[2022-05-14] MEDS ORDERED: SPIRONOLACTONE 12.5MG PER 1/2 TABLET ONE (09:22)
[2022-05-14] MEDS ORDERED: NAPR-849 PO (11:31)
[2022-05-14] MEDS ORDERED: FERR1TAB8 PO (11:31)
[2022-05-14] MEDS ORDERED: ACET1TAB55 PO (11:31)
== END 2022-05-14 14:55 | disposition home or self-care (01) | DRG 470 ==
LOC: M SDC 08:57 → M MS5PR 16:19 → M SDC 17:30
PROVIDERS: ADMIT Family Medicine; ATTEND Family Medicine
PROC: 8E0Y0CZ Robotic Assisted Procedure of Lower Extremity, Open Approach (ICD-10-PCS; 2022-05-12)
PROC: 0SRB04Z Replacement of Left Hip Joint with Ceramic on Polyethylene Synthetic Substitute, Open Approach (ICD-10-PCS; principal; 2022-05-12 10:25)
DX: M16.12 Unilateral primary osteoarthritis, left hip (principal); I25.10 Atherosclerotic heart disease of native coronary artery without angina pectoris; I11.9 Hypertensive heart disease without heart failure; I25.2 Old myocardial infarction; E78.2 Mixed hyperlipidemia; G47.33 Obstructive sleep apnea (adult) (pediatric); R73.03 Prediabetes; M10.9 Gout, unspecified; E88.81 Metabolic syndrome and other insulin resistance; K21.9 Gastro-esophageal reflux disease without esophagitis; Z79.82 Long term (current) use of aspirin; Z79.899 Other long term (current) drug therapy; Z98.61 Coronary angioplasty status; Z88.7 Allergy status to serum and vaccine; Z88.5 Allergy status to narcotic agent; Z88.8 Allergy status to other drugs, medicaments and biological substances; Z87.442 Personal history of urinary calculi
CPT/HCPCS: 27130; S2900

== ENCOUNTER → 2022-05-25 | Outpatient (CLI) | payer OTHER, MEDICARE ==
[~2022-05-25] MED LIST changes: +ACET1TAB55 PO; -ACETAMINOPHEN 500 MG TAB PO ONE; +FERR1TAB8 PO; -LIDOCAINE 2% 100MG/5ML SDV (FOR ANES.) As Ordered ONE; -MIDAZOLAM INJ 2MG/2ML VIAL (J2250 PER 1MG) As Ordered ONE; +NAPR-849 PO; -NAPROXEN 250 MG TAB PO ONE; -NS 1,000 ML IV ONE; -PREGABALIN 25 MG CAP (LYRICA) PO ONE; -ROCURONIUM BROMIDE 50 MG/5 ML VIAL As Ordered ONE; -ROPIVA 125MG/EPINEPH 0.25MG/CLONID 40MCG/KETOR 15MG IN NS 50ML SYRINGE PA ONE; -ceFAZolin SOD 2 GM in IV 1 EA IV ONE; -fentaNYL 250 MCG/5 ML INJECTION As Ordered ONE; -propofoL 200 MG/20 ML VIAL As Ordered ONE
== END ==
LOC: M SOG 07:51
PROVIDERS: ATTEND Orthopaedic Surgery Adult Reconstructive Orthopaedic Surgery
DX: M25.851 Other specified joint disorders, right hip (principal); Z96.642 Presence of left artificial hip joint

== ENCOUNTER → 2022-07-17 | Outpatient (CLI) | payer OTHER, MEDICARE | LOC: M PLAIMG 12:20 | PROVIDERS: ATTEND Orthopaedic Surgery Adult Reconstructive Orthopaedic Surgery | DX: M25.851 Other specified joint disorders, right hip (principal) ==

== ENCOUNTER → 2022-10-15 | Outpatient (CLI) | payer OTHER | LOC: M SOG 08:22 | PROVIDERS: ATTEND Orthopaedic Surgery | DX: M16.11 Unilateral primary osteoarthritis, right hip (principal); Z96.642 Presence of left artificial hip joint ==

== ENCOUNTER → 2022-10-16 | Outpatient (CLI) | payer MEDICARE ==
[~2022-10-16] MED LIST changes: +BUPIVACAINE HCL 0.5% 30ML VIAL As Ordered ONE; +ISOVUE-300 61% 100ML VIAL As Ordered ONE; +LIDOCAINE 1% MDV 20ML VIAL As Ordered ONE; +methylPREDNISolone 80MG/ML SUSP 1ML VIAL As Ordered ONE
== END ==
LOC: M RAD 13:33
PROVIDERS: ATTEND Radiology Practitioner Assistant
DX: M25.851 Other specified joint disorders, right hip (principal)
CPT/HCPCS: 20610; 77002; J1040; Q9967

== ENCOUNTER → 2022-10-27 | Outpatient (REF) | payer MEDICARE ==
[~2022-10-27] MED LIST changes: -BUPIVACAINE HCL 0.5% 30ML VIAL As Ordered ONE; -ISOVUE-300 61% 100ML VIAL As Ordered ONE; -LIDOCAINE 1% MDV 20ML VIAL As Ordered ONE; -methylPREDNISolone 80MG/ML SUSP 1ML VIAL As Ordered ONE
[2022-10-27 17:03] LABS: HEMATOCRIT 48.9 % (42.0-52.0); MEAN CORPUSCULAR HEMOGLOBIN 30.7 pg (27.0-33.0); MEAN CORPUSCULAR HGB CONC 32.7 g/dl (32.0-36.5); MEAN CORPUSCULAR VOLUME 93.9 fl (80.0-96.0); PLATELET COUNT, AUTOMATED 163 10^3/uL (150-450); RED BLOOD COUNT 5.21 10^6/uL (4.30-6.10); WHITE BLOOD COUNT 11.9 10^3/uL (4.0-10.0)
[2022-10-27 17:19] LABS: HEMOGLOBIN A1c 6.6 % (4.0-6.0)
[2022-10-27 17:35] LABS: ALKALINE PHOSPHATASE 63 U/L (46-116); ALT/SGPT 47 U/L (7.0-40); AST/SGOT 27 U/L (<34); BILIRUBIN,TOTAL 0.9 MG/DL (0.3-1.2); BLOOD UREA NITROGEN 18 MG/DL (9-23); CALCIUM LEVEL 8.5 MG/DL (8.3-10.6); CARBON DIOXIDE LEVEL 29 MMOL/L (20-31); CHLORIDE LEVEL 97 MMOL/L (98-107); CHOLESTEROL LEVEL 162 MG/DL (<200); CHOLESTEROL RISK RATIO 3.57 (<5); CREATININE FOR GFR 1.02 MG/DL (0.70-1.30); GLOMERULAR FILTRATION RATE > 60.0 (>42); GLUCOSE, FASTING 80 MG/DL (74-106); HDL CHOLESTEROL 45.3 MG/DL (>40); LDL CHOLESTEROL 65.7 MG/DL (<100); NON-HDL-C 116.7 MG/DL; POTASSIUM SERUM 4.2 MMOL/L (3.5-5.1); SODIUM LEVEL 135 MMOL/L (136-145); TOTAL PROTEIN 7.2 G/DL (5.7-8.2); TRIGLYCERIDES LEVEL 255 MG/DL (<150)
== END ==
LOC: M SFHCADAM 11:44
PROVIDERS: ATTEND Family Medicine
DX: Z12.5 Encounter for screening for malignant neoplasm of prostate (principal); I25.10 Atherosclerotic heart disease of native coronary artery without angina pectoris; E78.2 Mixed hyperlipidemia; R73.03 Prediabetes
CPT/HCPCS: 80053; 80061; 83036; 85027; G0103

== ENCOUNTER → 2022-11-26 | Outpatient (CLI) | payer MEDICARE | LOC: M SOG 11:14 | PROVIDERS: ATTEND Orthopaedic Surgery | DX: M16.11 Unilateral primary osteoarthritis, right hip (principal); Z96.641 Presence of right artificial hip joint ==

== ENCOUNTER → 2023-01-21 | Outpatient (CLI) | payer MEDICARE ==
[~2023-01-21] MED LIST changes: +COQ150CH PO
[2023-01-21 12:09] LABS: BASO % 0.5 % (0.0-1.0); EOS # 0.1 10^3/uL (0.0-0.5); EOS % 1.7 % (0.0-3.0); HEMATOCRIT 46.1 % (42.0-52.0); HEMOGLOBIN 15.6 g/dl (13.5-17.5); LYMPH # 1.9 10^3/uL (1.5-5.0); LYMPH % 28.6 % (24.0-44.0); MEAN CORPUSCULAR HEMOGLOBIN 31.6 pg (27.0-33.0); MEAN CORPUSCULAR HGB CONC 33.8 g/dl (32.0-36.5); MEAN CORPUSCULAR VOLUME 93.5 fl (80.0-96.0); MONO # 0.7 10^3/uL (0.0-0.8); MONO % 9.8 % (2.0-8.0); NEUTROPHILS # 3.9 10^3/uL (1.5-8.5); NEUTROPHILS % 59.1 % (36.0-66.0); PLATELET COUNT, AUTOMATED 163 10^3/uL (150-450); RED BLOOD COUNT 4.93 10^6/uL (4.30-6.10); WHITE BLOOD COUNT 6.6 10^3/uL (4.0-10.0)
[2023-01-21 12:20] LABS: INR 1.12; PARTIAL THROMBOPLASTIN TIME 25.9 SECONDS (24.8-34.2); PROTHROMBIN TIME 14.1 SECONDS (12.5-14.5)
[2023-01-21 12:44] LABS: ALBUMIN 3.9 G/DL (3.2-5.2); ALKALINE PHOSPHATASE 58 U/L (46-116); ALT/SGPT 36 U/L (7.0-40); AST/SGOT 20 U/L (<34); BILIRUBIN,TOTAL 0.6 MG/DL (0.3-1.2); BLOOD UREA NITROGEN 18 MG/DL (9-23); CALCIUM LEVEL 9.4 MG/DL (8.3-10.6); CARBON DIOXIDE LEVEL 27 MMOL/L (20-31); CHLORIDE LEVEL 99 MMOL/L (98-107); CREATININE FOR GFR 1.08 MG/DL (0.70-1.30); GLOMERULAR FILTRATION RATE > 60.0 (>42); GLUCOSE, FASTING 104 MG/DL (74-106); POTASSIUM SERUM 4.1 MMOL/L (3.5-5.1); SODIUM LEVEL 135 MMOL/L (136-145); TOTAL PROTEIN 7.4 G/DL (5.7-8.2)
== END ==
LOC: M RAD 11:00
PROVIDERS: ATTEND Internal Medicine Cardiovascular Disease
DX: Z01.810 Encounter for preprocedural cardiovascular examination (principal); I11.9 Hypertensive heart disease without heart failure; R06.02 Shortness of breath; I25.10 Atherosclerotic heart disease of native coronary artery without angina pectoris; I34.0 Nonrheumatic mitral (valve) insufficiency; R60.0 Localized edema

== ENCOUNTER 2023-02-09 06:40 | Observation (INO) | payer MEDICARE ==
[2023-02-09] VITALS (11 sets, daily range): BP systolic 108–136; BP diastolic 60–84; TEMP 96–97.5; O2SAT 92–98
[~2023-02-09] VITALS: Ht 167.6 cm; Wt 95.7 kg
[~2023-02-09 06:40] MED LIST changes: +ROPIVA 100MG/KETOR 15MG/EPINEPHRINE 0.3MG IN NS 50ML SYRINGE PA ONE
[2023-02-09] MEDS ORDERED: ceFAZolin SOD 2 GM in IV 1 EA IV ONE (06:50)
[2023-02-09] MEDS ORDERED: oxyCODONE 5MG TAB PO ONE (06:50)
[2023-02-09] MEDS ORDERED: TRANEXAMIC ACID 100 MG/ML 10ML VIAL IV ONE (06:50)
[2023-02-09] MEDS ORDERED: LR 1,000 ML IV SCH ×3 (08:10→15:15)
[2023-02-09] MEDS ORDERED: VANCOMYCIN 500MG/10ML VIAL As Ordered ONE (08:43)
[2023-02-09] MEDS ORDERED: TRANEXAMIC ACID 100 MG/ML 10ML VIAL As Ordered ONE (08:43)
[2023-02-09] MEDS ORDERED: LIDOCAINE 2% 100MG/5ML SDV (FOR ANES.) As Ordered ONE (09:41)
[2023-02-09] MEDS ORDERED: MIDAZOLAM INJ 2MG/2ML VIAL As Ordered ONE (09:41)
[2023-02-09] MEDS ORDERED: METOCLOPRAMIDE INJ 10MG/2ML VIAL As Ordered ONE (09:41)
[2023-02-09] MEDS ORDERED: propofoL 200 MG/20 ML VIAL As Ordered ONE (09:41)
[2023-02-09] MEDS ORDERED: ONDANSETRON 4MG 2ML VIAL As Ordered ONE (09:41)
[2023-02-09] MEDS ORDERED: ROCURONIUM BROMIDE 50MG/5ML VIAL As Ordered ONE ×3 (09:41→12:00)
[2023-02-09] MEDS ORDERED: SUGAMMADEX SODIUM 500 MG/5 ML VIAL (BRIDION) As Ordered ONE (09:41)
[2023-02-09] MEDS ORDERED: fentaNYL 250 MCG/5 ML INJECTION As Ordered ONE (09:41)
[2023-02-09] MEDS ORDERED: ePHEDrine SULFATE 25 MG/5 ML(5MG/ML) SYRINGE As Ordered ONE (09:41)
[2023-02-09] MEDS ORDERED: ACETAMINOPHEN 1000MG 100ML IV BAG As Ordered ONE (09:41)
[2023-02-09] MEDS ORDERED: ONDANSETRON 4MG 2ML VIAL IV PRN (12:45)
[2023-02-09] MEDS ORDERED: oxyCODONE 5MG TAB PO PRN ×3 (12:45→15:15)
[2023-02-09] MEDS ORDERED: HYDROMORPHONE HCL 0.5 MG/ 0.5 ML SYRINGE IV PRN (12:45)
[2023-02-09] MEDS ORDERED: fentaNYL 100 MCG/2 ML INJECTION IV PRN (12:45)
[2023-02-09] MEDS ORDERED: SENNA 8.6 MG TAB (SENOKOT) PO PRN (12:55)
[2023-02-09] MEDS ORDERED: HOME MED LIST COMPLETE! XX SCH (13:45)
[2023-02-09] MEDS ORDERED: NITROGLYCERIN 0.4MG SUBL TABLET SL PRN (15:20)
[2023-02-09] MEDS: ONDANSETRON 4MG 2ML VIAL IV PRN (16:29)
[2023-02-09] MEDS: ATORVASTATIN 20 MG TAB PO SCH (17:50)
[2023-02-09] MEDS: ACETAMINOPHEN TAB 650MG DOSE (2X325MG) PO SCH (17:50)
[2023-02-09] MEDS: ASPIRIN 81MG ENTERIC TABLET PO SCH (17:51)
[2023-02-09] MEDS: ceFAZolin SOD 2 GM in IV 1 EA IV SCH (17:51)
[2023-02-09] MEDS ORDERED: CHLORTHALIDONE 12.5MG PER 1/2 TABLET PO SCH (21:00)
[2023-02-09] MEDS ORDERED: ASPIRIN 81MG ENTERIC TABLET PO SCH (21:00)
[2023-02-09] MEDS: DOCUSATE SODIUM 100MG CAPSULE PO SCH (21:43)
[2023-02-10] MEDS: ceFAZolin SOD 2 GM in IV 1 EA IV SCH (00:34)
[2023-02-10] MEDS: ACETAMINOPHEN TAB 650MG DOSE (2X325MG) PO SCH ×3 (00:34→12:46)
[2023-02-10 00:53] VITALS: O2SAT 90
[2023-02-10 02:00] VITALS: BP 105/57; TEMP 97.3; O2SAT 97
[2023-02-10 06:00] VITALS: BP 110/56; TEMP 97; O2SAT 98
[2023-02-10 06:16] LABS: HEMATOCRIT 32.6 % (42.0-52.0); HEMOGLOBIN 11.1 g/dl (13.5-17.5); MEAN CORPUSCULAR HEMOGLOBIN 32.2 pg (27.0-33.0); MEAN CORPUSCULAR VOLUME 94.5 fl (80.0-96.0); PLATELET COUNT, AUTOMATED 129 10^3/uL (150-450); RED BLOOD COUNT 3.45 10^6/uL (4.30-6.10); WHITE BLOOD COUNT 12.7 10^3/uL (4.0-10.0)
[2023-02-10 06:28] LABS: INR 1.22; PROTHROMBIN TIME 15.1 SECONDS (12.5-14.5)
[2023-02-10 06:42] LABS: ALBUMIN 3.1 G/DL (3.2-5.2); ALKALINE PHOSPHATASE 37 U/L (46-116); ALT/SGPT 41 U/L (7.0-40); AST/SGOT 64 U/L (<34); BILIRUBIN,TOTAL 0.7 MG/DL (0.3-1.2); BLOOD UREA NITROGEN 27 MG/DL (9-23); CALCIUM LEVEL 8.5 MG/DL (8.3-10.6); CARBON DIOXIDE LEVEL 27 MMOL/L (20-31); CHLORIDE LEVEL 97 MMOL/L (98-107); GLOMERULAR FILTRATION RATE > 60.0 (>42); GLUCOSE, FASTING 173 MG/DL (74-106); POTASSIUM SERUM 4.3 MMOL/L (3.5-5.1); SODIUM LEVEL 133 MMOL/L (136-145); TOTAL PROTEIN 5.7 G/DL (5.7-8.2)
[2023-02-10 07:10] VITALS: O2SAT 97
[2023-02-10] MEDS ORDERED: FERROUS SULFATE 325MG TAB PO SCH (09:00)
[2023-02-10] MEDS ORDERED: ASCORBIC ACID 500 MG TAB PO SCH (09:00)
[2023-02-10] MEDS ORDERED: SPIRONOLACTONE 12.5MG PER 1/2 TABLET PO SCH (09:00)
[2023-02-10] MEDS ORDERED: OMEPRAZOLE 20MG CAP PO SCH (09:00)
[2023-02-10] MEDS ORDERED: CLOPIDOGREL 75 MG TAB PO SCH (09:00)
[2023-02-10] MEDS: ASPIRIN 81MG ENTERIC TABLET PO SCH (09:20)
[2023-02-10] MEDS: DOCUSATE SODIUM 100MG CAPSULE PO SCH (09:20)
[2023-02-10] MEDS: ATORVASTATIN 20 MG TAB PO SCH (09:21)
[2023-02-10] MEDS: ONDANSETRON 4MG 2ML VIAL IV PRN (09:23)
[2023-02-10 09:57] VITALS: BP 104/54; TEMP 97.6; O2SAT 99
[2023-02-10] MEDS ORDERED: OXYC1TAB23 PO (12:55)
[2023-02-10] MEDS ORDERED: CEFA500C2 PO (12:55)
[2023-02-10 13:35] VITALS: BP 122/64; TEMP 98.1; O2SAT 96
== END 2023-02-10 14:00 | disposition home health service (06) ==
LOC: M SDC 06:40 → M MS4PR 06:41
PROVIDERS: ADMIT Orthopaedic Surgery; ATTEND Orthopaedic Surgery
DX: M16.11 Unilateral primary osteoarthritis, right hip (principal); I25.2 Old myocardial infarction; I25.10 Atherosclerotic heart disease of native coronary artery without angina pectoris; E78.5 Hyperlipidemia, unspecified; M10.9 Gout, unspecified; G47.33 Obstructive sleep apnea (adult) (pediatric); Z98.61 Coronary angioplasty status; I71.40 Abdominal aortic aneurysm, without rupture, unspecified; I10 Essential (primary) hypertension; Z79.02 Long term (current) use of antithrombotics/antiplatelets; Z79.899 Other long term (current) drug therapy; Z88.7 Allergy status to serum and vaccine; Z88.5 Allergy status to narcotic agent; Z88.8 Allergy status to other drugs, medicaments and biological substances
CPT/HCPCS: 27130; 36415; 72170; 76000; 80053; 82306; 85027; 85610; 88300; 96365; 96366; 96375; 96376; 97116; 97161; 97165; 97530; 97535; C1713; C1776; G0378; J0131; J0690; J1100; J2250; J2405; J2765; J3010

== ENCOUNTER → 2023-02-22 | Outpatient (CLI) | payer MEDICARE ==
[~2023-02-22] MED LIST changes: +CEFA500C2 PO; +OXYC1TAB23 PO; -ROPIVA 100MG/KETOR 15MG/EPINEPHRINE 0.3MG IN NS 50ML SYRINGE PA ONE
== END ==
LOC: M SOG 08:00
PROVIDERS: ATTEND Orthopaedic Surgery
DX: M16.11 Unilateral primary osteoarthritis, right hip (principal); Z96.643 Presence of artificial hip joint, bilateral

== ENCOUNTER → 2023-05-03 | Outpatient (REF) | payer MEDICARE ==
[2023-05-03 13:46] LABS: HEMATOCRIT 43.3 % (42.0-52.0); HEMOGLOBIN 13.8 g/dl (13.5-17.5); MEAN CORPUSCULAR HEMOGLOBIN 28.5 pg (27.0-33.0); MEAN CORPUSCULAR HGB CONC 31.9 g/dl (32.0-36.5); MEAN CORPUSCULAR VOLUME 89.5 fl (80.0-96.0); PLATELET COUNT, AUTOMATED 208 10^3/uL (150-450); RED BLOOD COUNT 4.84 10^6/uL (4.30-6.10); WHITE BLOOD COUNT 5.7 10^3/uL (4.0-10.0)
[2023-05-03 14:14] LABS: ALBUMIN 3.8 G/DL (3.2-5.2); ALKALINE PHOSPHATASE 67 U/L (46-116); ALT/SGPT 35 U/L (7.0-40); AST/SGOT 27 U/L (<34); BILIRUBIN,TOTAL 0.6 MG/DL (0.3-1.2); BLOOD UREA NITROGEN 17 MG/DL (9-23); CALCIUM LEVEL 9.1 MG/DL (8.3-10.6); CARBON DIOXIDE LEVEL 28 MMOL/L (20-31); CHLORIDE LEVEL 98 MMOL/L (98-107); CHOLESTEROL LEVEL 152 MG/DL (<200); CHOLESTEROL RISK RATIO 3.46 (<5); CREATININE FOR GFR 0.93 MG/DL (0.70-1.30); GLOMERULAR FILTRATION RATE > 60.0 (>42); GLUCOSE, FASTING 120 MG/DL (74-106); HDL CHOLESTEROL 43.9 MG/DL (>40); LDL CHOLESTEROL 66.1 MG/DL (<100); NON-HDL-C 108.1 MG/DL; POTASSIUM SERUM 4.9 MMOL/L (3.5-5.1); SODIUM LEVEL 136 MMOL/L (136-145); TOTAL PROTEIN 7.2 G/DL (5.7-8.2); TRIGLYCERIDES LEVEL 210 MG/DL (<150)
[2023-05-03 14:17] LABS: HEMOGLOBIN A1c 6.4 % (4.0-6.0)
== END ==
LOC: M SFHCADAM 08:58
PROVIDERS: ATTEND Family Medicine
DX: R73.03 Prediabetes (principal); E78.2 Mixed hyperlipidemia; I25.10 Atherosclerotic heart disease of native coronary artery without angina pectoris

== ENCOUNTER → 2023-06-29 | Outpatient (CLI) | payer MEDICARE | LOC: M RAD 08:39 | PROVIDERS: ATTEND Surgery Vascular Surgery | DX: I71.43 Infrarenal abdominal aortic aneurysm, without rupture (principal) ==

== ENCOUNTER → 2023-06-30 | Outpatient (CLI) | payer MEDICARE | LOC: M SOG 07:56 | PROVIDERS: ATTEND Orthopaedic Surgery | DX: Z96.643 Presence of artificial hip joint, bilateral (principal) ==

== ENCOUNTER → 2023-07-19 | Outpatient (REF) | payer MEDICARE ==
[2023-07-19 14:40] LABS: HEMOGLOBIN A1c 7.2 % (4.0-6.0)
[2023-07-19 14:52] LABS: ALBUMIN 3.9 G/DL (3.2-5.2); ALKALINE PHOSPHATASE 63 U/L (46-116); ALT/SGPT 37 U/L (7.0-40); AST/SGOT 25 U/L (<34); BILIRUBIN,TOTAL 0.6 MG/DL (0.3-1.2); BLOOD UREA NITROGEN 23 MG/DL (9-23); CARBON DIOXIDE LEVEL 27 MMOL/L (20-31); CHLORIDE LEVEL 100 MMOL/L (98-107); CREATININE FOR GFR 0.94 MG/DL (0.70-1.30); GLOMERULAR FILTRATION RATE > 60.0 (>42); GLUCOSE, FASTING 147 MG/DL (74-106); POTASSIUM SERUM 4.5 MMOL/L (3.5-5.1); SODIUM LEVEL 135 MMOL/L (136-145); TOTAL PROTEIN 7.5 G/DL (5.7-8.2)
== END ==
LOC: M SFHCADAM 08:31
PROVIDERS: ATTEND Family Medicine
DX: R73.03 Prediabetes (principal)

== ENCOUNTER → 2023-12-29 | Outpatient (CLI) | payer MEDICARE | LOC: M SOG 07:56 | PROVIDERS: ATTEND Orthopaedic Surgery | DX: Z96.643 Presence of artificial hip joint, bilateral (principal); Z47.1 Aftercare following joint replacement surgery ==

== ENCOUNTER → 2024-01-24 | Outpatient (CLI) | payer MEDICARE | LOC: M RAD 10:24 | PROVIDERS: ATTEND Physician Assistant | DX: I71.43 Infrarenal abdominal aortic aneurysm, without rupture (principal); Z48.812 Encounter for surgical aftercare following surgery on the circulatory system ==

== ENCOUNTER → 2024-01-31 | Outpatient (REF) | payer MEDICARE ==
[2024-01-31 13:38] LABS: BLOOD UREA NITROGEN 21 MG/DL (9-23); CALCIUM LEVEL 9.5 MG/DL (8.3-10.6); CARBON DIOXIDE LEVEL 29 MMOL/L (20-31); CHLORIDE LEVEL 102 MMOL/L (98-107); CREATININE FOR GFR 1.09 MG/DL (0.70-1.30); GLOMERULAR FILTRATION RATE > 60.0 (>42); GLUCOSE, FASTING 120 MG/DL (74-106); POTASSIUM SERUM 4.9 MMOL/L (3.5-5.1); SODIUM LEVEL 136 MMOL/L (136-145)
[2024-01-31 13:45] LABS: HEMOGLOBIN A1c 6.8 % (4.0-6.0)
== END ==
LOC: M SFHCADAM 07:36
PROVIDERS: ATTEND Physician Assistant
DX: I11.9 Hypertensive heart disease without heart failure (principal); E11.9 Type 2 diabetes mellitus without complications

== ENCOUNTER → 2024-03-27 | Outpatient (CLI) | payer MEDICARE ==
[~2024-03-27] MED LIST changes: +ISOVUE-370 76% 100ML VIAL As Ordered ONE
== END ==
LOC: M RAD 13:44
PROVIDERS: ATTEND Surgery Vascular Surgery
DX: I71.43 Infrarenal abdominal aortic aneurysm, without rupture (principal)
CPT/HCPCS: 74174; Q9967

== ENCOUNTER → 2024-05-16 | Outpatient (REF) | payer MEDICARE ==
[~2024-05-16] MED LIST changes: -ISOVUE-370 76% 100ML VIAL As Ordered ONE
[2024-05-16 14:53] LABS: BASO % 0.4 % (0.0-1.0); EOS # 0.1 10^3/uL (0.0-0.5); EOS % 0.9 % (0.0-3.0); HEMATOCRIT 44.4 % (42.0-52.0); HEMOGLOBIN 14.4 g/dl (13.5-17.5); LYMPH # 1.8 10^3/uL (1.5-5.0); LYMPH % 25.9 % (24.0-44.0); MEAN CORPUSCULAR HEMOGLOBIN 29.4 pg (27.0-33.0); MEAN CORPUSCULAR HGB CONC 32.4 g/dl (32.0-36.5); MEAN CORPUSCULAR VOLUME 90.8 fl (80.0-96.0); MONO # 0.7 10^3/uL (0.0-0.8); MONO % 9.6 % (2.0-8.0); NEUTROPHILS # 4.3 10^3/uL (1.5-8.5); NEUTROPHILS % 62.9 % (36.0-66.0); PLATELET COUNT, AUTOMATED 158 10^3/uL (150-450); RED BLOOD COUNT 4.89 10^6/uL (4.30-6.10); WHITE BLOOD COUNT 6.8 10^3/uL (4.0-10.0)
[2024-05-16 14:56] LABS: PSA SCREENING 2.34 NG/ML (< 4.00)
[2024-05-16 14:57] LABS: ALBUMIN 3.7 G/DL (3.2-5.2); ALKALINE PHOSPHATASE 51 U/L (40-129); ALT/SGPT 30 U/L (7.0-40); AST/SGOT 20 U/L (<34); BILIRUBIN,TOTAL 0.6 MG/DL (0.3-1.2); BLOOD UREA NITROGEN 21 MG/DL (9-23); CALCIUM LEVEL 9.7 MG/DL (8.3-10.6); CARBON DIOXIDE LEVEL 28 MMOL/L (20-31); CHLORIDE LEVEL 101 MMOL/L (98-107); CHOLESTEROL LEVEL 151 MG/DL (<200); CHOLESTEROL RISK RATIO 3.74 (<5); CREATININE FOR GFR 0.96 MG/DL (0.70-1.30); GLOMERULAR FILTRATION RATE > 60.0 (>42); GLUCOSE, FASTING 122 MG/DL (74-106); HDL CHOLESTEROL 40.3 MG/DL (>40); LDL CHOLESTEROL 66.5 MG/DL (<100); NON-HDL-C 110.7 MG/DL; POTASSIUM SERUM 4.8 MMOL/L (3.5-5.1); SODIUM LEVEL 135 MMOL/L (136-145); TOTAL PROTEIN 7.4 G/DL (5.7-8.2); TRIGLYCERIDES LEVEL 221 MG/DL (<150)
[2024-05-16 16:51] LABS: HEMOGLOBIN A1c 6.7 % (4.0-6.0)
== END ==
LOC: M SFHCADAM 08:13
PROVIDERS: ATTEND Physician Assistant
DX: I11.9 Hypertensive heart disease without heart failure (principal); E78.2 Mixed hyperlipidemia; I25.10 Atherosclerotic heart disease of native coronary artery without angina pectoris; K21.9 Gastro-esophageal reflux disease without esophagitis; F32.9 Major depressive disorder, single episode, unspecified; E11.9 Type 2 diabetes mellitus without complications; Z12.5 Encounter for screening for malignant neoplasm of prostate
CPT/HCPCS: 80053; 80061; 83036; 85025; G0103

== ENCOUNTER → 2024-10-11 | Outpatient (REF) | payer MEDICARE ==
[~2024-10-11] MED LIST changes: -FLOM0.4C39 PO; +TAMS-18 PO
[2024-10-11 14:10] LABS: CALCIUM LEVEL 9.4 MG/DL (8.3-10.6); CREATININE FOR GFR 1.03 MG/DL (0.70-1.30); GLOMERULAR FILTRATION RATE 77.7 (>42); POTASSIUM SERUM 4.9 MMOL/L (3.5-5.1)
[2024-10-11 14:11] LABS: URIC ACID 6.1 MG/DL (3.7-9.2)
[2024-10-11 17:07] LABS: HEMOGLOBIN A1c 6.7 % (4.0-6.0)
== END ==
LOC: M SFHCADAM 08:09
PROVIDERS: ATTEND Family Medicine
DX: R73.03 Prediabetes (principal); M10.9 Gout, unspecified

== ENCOUNTER → 2025-01-03 | Outpatient (CLI) | payer MEDICARE | LOC: M SOG 07:01 | PROVIDERS: ATTEND Orthopaedic Surgery | DX: Z96.643 Presence of artificial hip joint, bilateral (principal) ==

== ENCOUNTER → 2025-04-20 | Outpatient (REF) | payer MEDICARE ==
[~2025-04-20] MED LIST changes: -COLC0.6T47 PO; +COLC0.6T53 PO
[2025-04-20 13:35] LABS: PLATELET COUNT, AUTOMATED 192 10^3/uL (150-450)
[2025-04-20 13:44] LABS: ALT/SGPT 29.0 U/L (7.0-40); AST/SGOT 25.0 U/L (<34); CALCIUM LEVEL 9.2 MG/DL (8.3-10.6); CARBON DIOXIDE LEVEL 29.0 MMOL/L (20-31); CHLORIDE LEVEL 96.0 MMOL/L (98-107); CHOLESTEROL LEVEL 146.0 MG/DL (<200); CHOLESTEROL RISK RATIO 4.06 (<5); CREATININE FOR GFR 1.19 MG/DL (0.70-1.30); GLOMERULAR FILTRATION RATE 64.9 (>42); LDL CHOLESTEROL 77.9 MG/DL (<100); NON-HDL-C 110.1 MG/DL; POTASSIUM SERUM 4.6 MMOL/L (3.5-5.1); SODIUM LEVEL 137.0 MMOL/L (136-145); TRIGLYCERIDES LEVEL 161.0 MG/DL (<150)
[2025-04-20 13:48] LABS: ESTIMATED AVERAGE GLUCOSE 151.0 MG/DL (60-110)
[2025-04-20 14:01] LABS: CREATININE, URINE 92.1 MG/DL; MALB URINE SIEMENS < 3.0 MG/L
== END ==
LOC: M SFHCADAM 07:33
PROVIDERS: ATTEND Family Medicine
DX: E11.9 Type 2 diabetes mellitus without complications (principal); I25.10 Atherosclerotic heart disease of native coronary artery without angina pectoris; F32.9 Major depressive disorder, single episode, unspecified; M10.9 Gout, unspecified; E78.2 Mixed hyperlipidemia